=== PATIENT | female | born 1975 | race Caucasian/White ===

== ENCOUNTER → 2016-11-28 | Outpatient (CLI) | payer BC | LOC: RAD 08:12 | PROVIDERS: ATTEND Family Medicine | DX: Z12.31 Encounter for screening mammogram for malignant neoplasm of breast (principal) ==

== ENCOUNTER → 2016-12-26 | Outpatient (CLI) | payer BC ==
[~2016-12-26] VITALS: Ht 160 cm; Wt 63.5 kg
[~2016-12-26] MED LIST: ALPR1TAB7 PO; AMIT100T2 PO; AMIT150T PO; AMOX875T47 PO; BUPR200T2 PO; CEFD300C PO; CHOL500014 PO; CLON-393 PO; CYCL10TA45 PO; EZET10TA5 PO; GBPN600T PO; GEMF600T3 PO; HYDR-3754 PO; HYDR4TAB21 PO; MULT-35 PO; NAPR550T PO; Niacin; OMEP20CA6; OMEP20CA6 PO; ONDA-51 PO; OXYC30TA80 PO; OXYC40TA46 PO; PHEN15CA67 PO; PROM25TA5 PO; QTP100T PO; TOPI-53 PO
--- NOTE | 2016-12-26 18:05 | NUR ---
PT HAD OUTPATIENT BLADDER SCAN FOR URINARY HESITANCY. RESULTS CALLED TO DR CRUZ WHO IS PIG FARMER FOR DR ANGELO (PCP). POST VOID RESIDUAL [id number]. PT ALSO INFORMED OF THIS.
== END | disposition home or self-care (01) ==
LOC: RAD 16:31
PROVIDERS: ATTEND Family Medicine
DX: R39.11 Hesitancy of micturition (principal)
CPT/HCPCS: 51798